=== PATIENT | female | born 1930 | race Caucasian/White ===

== ENCOUNTER 2018-11-18 16:14 | Inpatient (IN) | payer OTHER ==
[~2018-11-18] VITALS: Ht 162.6 cm; Wt 89.2 kg
[~2018-11-18 16:14] MED LIST: Carvedilol12.5 MG PO
[2018-11-18 16:54] LABS: Source, Urine Catheter
[2018-11-18 16:59] LABS: BASOPHILS ABSOLUTE AUTO 0.02 K/mm3 (0.00-0.23); BASOPHILS PERCENT AUTO 0 % (0-2); EOSINOPHILS ABSOLUTE AUTO 0.02 K/mm3 (0.00-0.68); EOSINOPHILS PERCENT AUTO 0 % (0-6); Hematocrit 40.6 % (33.0-51.0); Hemoglobin 13.5 g/dL (11.5-16.0); IMMATURE GRAN ABSOLUTE AUTO 0.07 K/mm3 (0.00-0.10); IMMATURE GRAN PERCENT AUTO 1 % (0-1); LYMPHOCYTES ABSOLUTE AUTO 0.18 K/mm3 (0.84-5.20); LYMPHOCYTES PERCENT AUTO 2 % (21-46); MONOCYTES ABSOLUTE AUTO 0.45 K/mm3 (0.16-1.47); MONOCYTES PERCENT AUTO 5 % (4-13); Mean Corpuscular HGB 31.5 pg (26.0-34.0); Mean Corpuscular HGB Conc 33.3 g/dL (31.5-36.5); Mean Corpuscular Volume 95 fL (80-100); Mean Platelet Volume 10.8 fL (9.1-12.4); NEUTROPHILS ABSOLUTE AUTO 8.87 K/mm3 (1.96-9.15); NEUTROPHILS PERCENT AUTO 92 % (41-73); RDW Standard Deviation 45.6 fL (35.1-46.3); Red Blood Cell Count 4.28 M/mm3 (3.80-5.20); White Blood Cell Count 9.61 K/mm3 (4.00-11.30)
[2018-11-18 17:06] LABS: Platelet Count 49 K/mm3 (150-400)
[2018-11-18 17:09] LABS: Bilirubin, Urine Neg (Neg); Blood, Urine 5+ (Neg); Glucose Qualitative, Urine Neg (Neg); Ketones, Urine 3+ (Neg); Leukocyte Esterase, Urine 1+ (Neg); Nitrite, Urine Neg (Neg); Protein, Urine 3+ (Neg); Specific Gravity, Urine 1.025 (1.003-1.022); Urobilinogen, Urine 2+ (Normal)
[2018-11-18 17:09] LABS: Alanine Aminotransfer (ALT/SGP 33 U/L (12-78); Albumin, Blood 3.2 g/dL (3.4-5.0); Albumin/Globulin Ratio 1.1 (0.8-1.8); Alk Phos 76 U/L (50-136); Anion Gap 10 mmol/L (6-16); Aspartate Aminotrans (AST/SGOT 38 U/L (12-37); Bilirubin, Total 2.3 mg/dL (0.1-1.0); Blood Urea Nitrogen 18 mg/dL (8-24); Bun/Creatinine Ratio 25.1 (12.0-20.0); CO2, Blood 23 mmol/L (21-32); Calcium, Blood 8.7 mg/dL (8.5-10.1); Chloride, Blood 102 mmol/L (98-108); Creatinine, Blood 0.72 mg/dL (0.40-1.00); Glomerular Filtration Rate >60 (60-); Glucose, Blood 109 mg/dL (70-99); Potassium, Blood 3.6 mmol/L (3.5-5.5); Sodium, Blood 135 mmol/L (136-145); Total Protein, Blood 6.2 g/dL (6.4-8.2)
[2018-11-18 17:18] LABS: Appearance, Urine Hazy (Clear); Color, Urine Yellow (P-Yellow)
[2018-11-18 17:21] LABS: Amorphous Mod (0-Heavy); Bacteria Mod /hpf; Hyaline Casts 0-2 /lpf (0-2); Squamous Epithelial Cells Rare /hpf (Few)
[2018-11-18] MEDS ORDERED: Prinivil10 MG PO (18:21)
[2018-11-18] MEDS ORDERED: LO-DOSE ASPIRIN81 MG PO (18:22)
[2018-11-18] MEDS ORDERED: LEG CRAMP PO (18:23)
[2018-11-18 19:18] LABS: Bilirubin, Direct 0.8 mg/dL (0.0-0.3); Bilirubin, Indirect 1.6 mg/dL (0.1-0.7); Bilirubin, Total 2.4 mg/dL (0.1-1.0)
[2018-11-19 05:05] LABS: Hematocrit 33.8 % (33.0-51.0); Hemoglobin 11.2 g/dL (11.5-16.0); Mean Corpuscular HGB 31.7 pg (26.0-34.0); Mean Corpuscular HGB Conc 33.1 g/dL (31.5-36.5); Mean Corpuscular Volume 96 fL (80-100); Mean Platelet Volume 11.5 fL (9.1-12.4); RDW Coefficient Variation 13.2 % (11.7-14.2); RDW Standard Deviation 46.5 fL (35.1-46.3); Red Blood Cell Count 3.53 M/mm3 (3.80-5.20); White Blood Cell Count 7.73 K/mm3 (4.00-11.30)
[2018-11-19 05:11] LABS: Platelet Count 37 K/mm3 (150-400)
--- NOTE | 2018-11-19 06:45 | NUR ---
SHIFT SUMMARY PT NEW ADMIT TO FLOOR LAST NIGHT. AOX4. DENIES ANY PAIN OR DISCOMFORT EVEN IN BENY/GROIN AREA WHICH IS VERY RED/INFLAMMED & HAS ULCER, SEE PICS. DENIES N/V/D OR SOB. HAD MILD FEVER @100.9 EARLIER THIS AM, MEDICATED 1X W/TYLENOL & TEMP DECREASED TO 98.9. NOTIFIED OF CRITICAL PLT OF 37 @0510 & + BLOOD CULTURES OF GRAM - BACILLI @0622 INFORMED CHARGE NURSE & WILL PASS TO ONCOMING DAY NURSE. INCONTINENT/CONTINENT OF URINE, CHANGE PRN. CALL LIGHT IN REACH.
--- NOTE | 2018-11-19 16:49 | NUR ---
PT A/OX3, PLEASANT AND COOPERATIVE, PT DENIED ANY PAIN T/O THE DAY, THE PTAPPEARS TO BE BREATHING EASILY ON RA, THE PT REMAINED IN BED T/O THE DAY PER HER REQUEST AND USED THE BEDPAN, THE PT WAS CONSULTED BY PATRICK GARCÍA AND ANTI BIOTIC WAS APPLIED TO THE PTS LABIA BENY AREA WOUNDS, MULTIPLE FAMILY IN TO SEE THE PT T/O THE DAY, CALL LIGHT IN REACH, WILL CONTINUE TO MONITOR AND ASSESS FOR CHANGES
[2018-11-20 05:06] LABS: Hematocrit 34.3 % (33.0-51.0); Hemoglobin 11.4 g/dL (11.5-16.0); Mean Corpuscular HGB 31.9 pg (26.0-34.0); Mean Corpuscular HGB Conc 33.2 g/dL (31.5-36.5); Mean Corpuscular Volume 96 fL (80-100); Mean Platelet Volume 11.9 fL (9.1-12.4); RDW Coefficient Variation 13.2 % (11.7-14.2); RDW Standard Deviation 47.1 fL (35.1-46.3); Red Blood Cell Count 3.57 M/mm3 (3.80-5.20); White Blood Cell Count 5.44 K/mm3 (4.00-11.30)
[2018-11-20 05:12] LABS: Platelet Count 41 K/mm3 (150-400)
[2018-11-20 05:20] LABS: Anion Gap 7 mmol/L (6-16); Blood Urea Nitrogen 18 mg/dL (8-24); Bun/Creatinine Ratio 21.7 (12.0-20.0); CO2, Blood 27 mmol/L (21-32); Calcium, Blood 8.1 mg/dL (8.5-10.1); Chloride, Blood 104 mmol/L (98-108); Creatinine, Blood 0.83 mg/dL (0.40-1.00); Glomerular Filtration Rate >60 (60-); Glucose, Blood 101 mg/dL (70-99); Potassium, Blood 3.5 mmol/L (3.5-5.5); Sodium, Blood 138 mmol/L (136-145)
--- NOTE | 2018-11-20 05:32 | NUR ---
SHIFT SUMMARY: 88 Y/O OBESE FEMALE RESTED COMFORTABLY ALL SHIFT. PT DECLINED TO UTILIZE BSC AND INSTEAD USED BEDPAN WITH DARK YELLOW FLUID VOIDED. PT VULVA IS RED AND EXCORIATED WITH MUPIROCIN 2% OINTMENT APPLIED. PT ALERT AND ORIENTED X 4, DENIES PAIN OR NAUSEA. PTS GRANDSON SPENT THE NIGHT. PTS BED ALARM APPLIED, BED LOW POSITION, CALL LIGHT AT SIDE.
--- NOTE | 2018-11-20 17:41 | NUR ---
NO ACUTE CHANGES TO PATIENT. SHE REMAINS BEDBOUND USING THE BEDPAN NEEDED. HER GRANDSON/CAREGIVER HAS BEEN AT BEDSIDE THROUGHOUT THE SHIFT. NO COMPLAINTS.
--- NOTE | 2018-11-20 23:58 | NUR ---
PT WAS GIVEN BED BATH TO INCLUDE HAIR WASH BY THIS NURSE AND NIDIA AND ENTIRE LINEN CHANGED AFTER PT WAS NOTICED TO BE WEARING SAME GOWN FROM YESTERDAY. PT VOICED APPRECIATION FOR CARE PROVIDED. PTS GRANDSON AT SIDE FOR EVENING.
[2018-11-21 04:56] LABS: Hematocrit 33.4 % (33.0-51.0); Hemoglobin 10.9 g/dL (11.5-16.0); Mean Corpuscular HGB 31.5 pg (26.0-34.0); Mean Corpuscular HGB Conc 32.6 g/dL (31.5-36.5); Mean Corpuscular Volume 97 fL (80-100); Mean Platelet Volume 11.6 fL (9.1-12.4); RDW Coefficient Variation 13.2 % (11.7-14.2); RDW Standard Deviation 47.3 fL (35.1-46.3); Red Blood Cell Count 3.46 M/mm3 (3.80-5.20); White Blood Cell Count 7.11 K/mm3 (4.00-11.30)
[2018-11-21 05:00] LABS: Platelet Count 47 K/mm3 (150-400)
[2018-11-21 05:11] LABS: Alanine Aminotransfer (ALT/SGP 21 U/L (12-78); Albumin, Blood 2.3 g/dL (3.4-5.0); Albumin/Globulin Ratio 0.8 (0.8-1.8); Alk Phos 75 U/L (50-136); Anion Gap 6 mmol/L (6-16); Aspartate Aminotrans (AST/SGOT 22 U/L (12-37); Bilirubin, Total 0.8 mg/dL (0.1-1.0); Blood Urea Nitrogen 15 mg/dL (8-24); Bun/Creatinine Ratio 17.7 (12.0-20.0); CO2, Blood 28 mmol/L (21-32); Calcium, Blood 8.3 mg/dL (8.5-10.1); Chloride, Blood 103 mmol/L (98-108); Creatinine, Blood 0.85 mg/dL (0.40-1.00); Globulin, Blood 2.8 g/dL (2.2-4.0); Glomerular Filtration Rate >60 (60-); Glucose, Blood 108 mg/dL (70-99); Potassium, Blood 3.5 mmol/L (3.5-5.5); Sodium, Blood 137 mmol/L (136-145); Total Protein, Blood 5.1 g/dL (6.4-8.2)
--- NOTE | 2018-11-21 05:24 | NUR ---
SHIFT SUMMARY: 88 Y/O FEMALE RESTED COMFORTABLY ALL SHIFT WITH GRANDSON SPENDING NIGHT IN LOUNGE CHAIR. PT DENIES PAIN OR NAUEA. PTS GROIN AREA STILL RED AND EXCORIATED WITH MUPICIRON 2% OINTMENT APPLIED ORDERED. PT ALERT AND ORIENTED X 4. PTS BED LOW POSITION, CALL LIGHT AT SIDE.
--- NOTE | 2018-11-21 17:31 | NUR ---
SHIFT SUMMARY PT UP TO CHAIR THIS AFTERNOON. GRANDSON AT BEDSIDE MOST OF DAY. PT TOOK A SHOWER THIS MORNING WITH 1 PERSON ASSIST AND TOLERATED WITH NO PROBLEM. NO FEVERS NOTED. REDNESS AND IRRITATION TO BENY AREA APPEAR IMPROVED FROM PICS ON ADMIT. POSSIBLE DISCHARGE TOMORROW.
--- NOTE | 2018-11-21 19:24 | NUR ---
asssumed care of patient. sitting i chair with family visiting. pt denies pain, #20 RAC SL c/d/i. No apparent distress noted. call loya within reach.
[2018-11-22 05:56] LABS: BASOPHILS ABSOLUTE AUTO 0.04 K/mm3 (0.00-0.23); BASOPHILS PERCENT AUTO 1 % (0-2); EOSINOPHILS ABSOLUTE AUTO 0.14 K/mm3 (0.00-0.68); EOSINOPHILS PERCENT AUTO 2 % (0-6); Hematocrit 33.5 % (33.0-51.0); IMMATURE GRAN ABSOLUTE AUTO 0.11 K/mm3 (0.00-0.10); IMMATURE GRAN PERCENT AUTO 2 % (0-1); LYMPHOCYTES ABSOLUTE AUTO 0.77 K/mm3 (0.84-5.20); LYMPHOCYTES PERCENT AUTO 13 % (21-46); MONOCYTES ABSOLUTE AUTO 1.05 K/mm3 (0.16-1.47); MONOCYTES PERCENT AUTO 18 % (4-13); Mean Corpuscular HGB Conc 32.8 g/dL (31.5-36.5); Mean Platelet Volume 11.1 fL (9.1-12.4); NEUTROPHILS PERCENT AUTO 65 % (41-73); Platelet Count 59 K/mm3 (150-400); RDW Coefficient Variation 13.3 % (11.7-14.2); RDW Standard Deviation 46.5 fL (35.1-46.3); Red Blood Cell Count 3.55 M/mm3 (3.80-5.20); White Blood Cell Count 6.01 K/mm3 (4.00-11.30)
[2018-11-22 05:58] LABS: Mean Corpuscular Volume 94 fL (80-100)
[2018-11-22 06:10] LABS: Anion Gap 4 mmol/L (6-16); Blood Urea Nitrogen 13 mg/dL (8-24); Bun/Creatinine Ratio 18.7 (12.0-20.0); CO2, Blood 30 mmol/L (21-32); Chloride, Blood 105 mmol/L (98-108); Glomerular Filtration Rate >60 (60-); Glucose, Blood 139 mg/dL (70-99); Potassium, Blood 3.6 mmol/L (3.5-5.5); Sodium, Blood 139 mmol/L (136-145)
[2018-11-22] MEDS ORDERED: ACET325 PO (15:56)
[2018-11-22] MEDS ORDERED: LEVFLO500 PO (15:57)
[2018-11-22] MEDS ORDERED: AKWA Tears15 ML BOTHEYES (15:57)
[2018-11-22] MEDS ORDERED: PANT40 PO (15:58)
--- NOTE | 2018-11-22 18:38 | NUR ---
DISCHARGE INSTRUCTIONS COMPLETED AND DISCUSSED WITH PT EXPRESSING UNDERSTANDING. GRANDSON AT BEDSIDE WELL AND LISTENED IN ON INFORMATION. [facility] FAXED TO [facility] AND [facility] WAS CALLED AND STATED SCRIPTS WERE ALMOST FILLED. PT NOTIFIED. DAUGHTER HERE TO PICK PT UP. TO [facility] VIA W/C AND 1 PERSON ASSIST WITH TRANSFER TO CAR.
== END 2018-11-22 18:27 | disposition home or self-care (01) | DRG 872 ==
LOC: ER 16:14 → MEDS 18:51
PROVIDERS: Emergency Medicine; Internal Medicine; ADMIT Internal Medicine
DX: A41.51 Sepsis due to Escherichia coli [E. coli] (principal); E87.1 Hypo-osmolality and hyponatremia; N30.00 Acute cystitis without hematuria; D69.6 Thrombocytopenia, unspecified; I10 Essential (primary) hypertension; R26.9 Unspecified abnormalities of gait and mobility; R65.20 Severe sepsis without septic shock; N76.2 Acute vulvitis; Z87.891 Personal history of nicotine dependence; Z79.82 Long term (current) use of aspirin; Z79.899 Other long term (current) drug therapy
CPT/HCPCS: 36415; 71045; 76705; 80048; 80053; 81001; 82247; 82248; 83010; 83605; 83615; 85025; 85027; 87040; 87077; 87086; 87186; 93005; 93010; 96361; 96365; 97162; 97530; 99285-25; A9270; J0696; J7030; J7120; P9612

== ENCOUNTER 2021-05-29 14:37 | Emergency (ER) | payer OTHER ==
[~2021-05-29] VITALS: Ht 175.3 cm; Wt 76.7 kg
[~2021-05-29 14:37] MED LIST changes: +ACET325 PO; +AKWA Tears15 ML BOTHEYES; +LEG CRAMP PO; +LEVFLO500 PO; +LO-DOSE ASPIRIN81 MG PO; +PANT40 PO; +Prinivil10 MG PO
[2021-05-29 16:11] LABS: BASOPHILS ABSOLUTE AUTO 0.09 K/mm3 (0.00-0.23); BASOPHILS PERCENT AUTO 2 % (0-2); EOSINOPHILS ABSOLUTE AUTO 0.06 K/mm3 (0.00-0.68); EOSINOPHILS PERCENT AUTO 1 % (0-6); Hematocrit 34.1 % (33.0-51.0); Hemoglobin 11.3 g/dL (11.5-16.0); IMMATURE GRAN ABSOLUTE AUTO 0.06 K/mm3 (0.00-0.10); IMMATURE GRAN PERCENT AUTO 1 % (0-1); LYMPHOCYTES ABSOLUTE AUTO 0.75 K/mm3 (0.84-5.20); LYMPHOCYTES PERCENT AUTO 16 % (21-46); MONOCYTES PERCENT AUTO 13 % (4-13); Mean Corpuscular HGB 32.2 pg (26.0-34.0); Mean Corpuscular HGB Conc 33.1 g/dL (31.5-36.5); Mean Corpuscular Volume 97 fL (80-100); NEUTROPHILS ABSOLUTE AUTO 3.15 K/mm3 (1.96-9.15); NEUTROPHILS PERCENT AUTO 67 % (41-73); Platelet Count 145 K/mm3 (150-400); RDW Coefficient Variation 13.7 % (11.7-14.2); Red Blood Cell Count 3.51 M/mm3 (3.80-5.20); White Blood Cell Count 4.71 K/mm3 (4.00-11.30)
[2021-05-29 16:42] LABS: Alanine Aminotransfer (ALT/SGP 20 U/L (12-78); Albumin, Blood 3.6 g/dL (3.4-5.0); Albumin/Globulin Ratio 1.4 (0.8-1.8); Alk Phos 82 U/L (50-136); Anion Gap 6 mmol/L (6-16); Aspartate Aminotrans (AST/SGOT 20 U/L (12-37); Bilirubin, Total 0.8 mg/dL (0.1-1.0); Blood Urea Nitrogen 19 mg/dL (8-24); Bun/Creatinine Ratio 19.7 (12.0-20.0); CO2, Blood 26 mmol/L (21-32); Calcium, Blood 8.9 mg/dL (8.5-10.1); Chloride, Blood 105 mmol/L (98-108); Creatinine, Blood 0.96 mg/dL (0.40-1.00); Globulin, Blood 2.6 g/dL (2.2-4.0); Glomerular Filtration Rate 54 (60-); Glucose, Blood 179 mg/dL (70-99); Potassium, Blood 3.8 mmol/L (3.5-5.5); Sodium, Blood 137 mmol/L (136-145); Total Protein, Blood 6.2 g/dL (6.4-8.2); Troponin I <0.015 ng/mL (0.000-0.040)
[2021-05-29] MEDS ORDERED: LASIX40 MG PO (19:08)
== END 2021-05-29 21:40 | disposition home or self-care (01) ==
LOC: ER 14:37
PROVIDERS: Physician Assistant
DX: R60.0 Localized edema (principal); I10 Essential (primary) hypertension; Z85.44 Personal history of malignant neoplasm of other female genital organs; Z87.891 Personal history of nicotine dependence; Z79.899 Other long term (current) drug therapy; Z79.82 Long term (current) use of aspirin
CPT/HCPCS: 36415; 71046; 80053; 83690; 83880; 84484; 85025; 93005; 93010; 99284-25